=== PATIENT | male | born 1950 | race African-American/Black ===

== ENCOUNTER 2017-02-01 19:53 | Emergency (ER) | payer MEDICAID ==
[~2017-02-01] VITALS: Ht 172.7 cm; Wt 79.0 kg
[2017-02-01] MEDS ORDERED: KETOROLAC 30MG/ML VIAL IV STA (20:33)
[2017-02-01] MEDS ORDERED: ONDANSETRON HCL 4MG/2ML VIAL IV STA (20:33)
[2017-02-01] MEDS ORDERED: SODIUM CHLORIDE 0.9% 1,000 ML IV ONE (20:33)
[2017-02-01] MEDS ORDERED: FAMOTIDINE 20MG/2ML VIAL IV ONE (20:45)
[2017-02-01 20:59] LABS: BASOPHILS % 0.4 % (0.0-2.0); CHLORIDE 98 mEq/L (98-107); EOSINOPHILS % 0.1 % (0.0-5.0); HEMATOCRIT. 50.6 % (42.0-52.0); HEMOGLOBIN. 17.1 g/dL (14.0-18.0); LYMPHOCYTES % 13.4 % (20.0-50.0); MEAN CORPUSCULAR HEMOGLOBIN 30.3 pg (28.0-32.0); MEAN CORPUSCULAR VOLUME 89.9 fL (80.0-94.0); MEAN PLATELET VOLUME 8.3 fl (7.4-10.4); MONOCYTES % 7.7 % (2.0-8.0); NEUTROPHILS % 78.4 % (40.0-76.0); PLATELET 275 x1000/uL (130-400); RED BLOOD CELL COUNT 5.63 mill/uL (4.7-6.1); RED CELL DISTRIBUTION WIDTH 15.3 % (11.6-14.6)
[2017-02-01 21:01] LABS: CARBON DIOXIDE 32 mEq/L (21-32)
[2017-02-01 22:31] LABS: CLARITY URINE CLEAR (CLEAR); COLOR URINE YELLOW (YELLOW); GLUCOSE URINE 1+ (NEGATIVE); KETONES URINE 2+ (NEGATIVE); LEUKOCYTE ESTERASE URINE NEGATIVE (NEGATIVE); NITRITE URINE NEGATIVE (NEGATIVE); OCCULT BLOOD URINE TRACE (NEGATIVE); PROTEIN URINE 4+ (NEGATIVE); SPECIFIC GRAVITY URINE 1.025 (1.005-1.030)
[2017-02-01] MEDS ORDERED: IOHEXOL-300 100 ML BOTTLE ONE (22:33)
[2017-02-02 02:24] VITALS: BP 145/90
== END 2017-02-02 02:25 | disposition home or self-care (01) ==
LOC: ER 19:53
DX: R10.33 Periumbilical pain (principal); R11.2 Nausea with vomiting, unspecified; E11.9 Type 2 diabetes mellitus without complications; I10 Essential (primary) hypertension
CPT/HCPCS: 36415; 74177; 80053; 81001; 83690; 85025; 96374; 96375; 99285; J1885; J2405; J3490; J7040; Q9967; Z7610; J7030

== ENCOUNTER 2022-04-22 18:36 | Inpatient (IN) | payer MEDICARE, MEDICAID ==
[~2022-04-22] VITALS: Ht 182.9 cm; Wt 79.4 kg
[2022-04-22] MEDS ORDERED: ALBUTEROL (0.5%) 2.5MG/0.5ML NEB HHN ONE (19:15)
[2022-04-22 19:56] LABS: BASOPHILS % 0.7 % (0.0-2.0); EOSINOPHILS % 2.7 % (0.0-5.0); HEMATOCRIT. 31.6 % (42.0-52.0); HEMOGLOBIN. 10.7 g/dL (14.0-18.0); LYMPHOCYTES % 21.7 % (20.0-50.0); MEAN CORPUSCULAR HEMOGLOBIN 30.4 pg (28.0-32.0); MEAN CORPUSCULAR VOLUME 89.9 fL (80.0-94.0); MEAN PLATELET VOLUME 7.5 fl (7.4-10.4); MONOCYTES % 11.1 % (2.0-8.0); NEUTROPHILS % 63.8 % (40.0-76.0); PLATELET 272 x1000/uL (130-400); RED BLOOD CELL COUNT 3.52 mill/uL (4.7-6.1); RED CELL DISTRIBUTION WIDTH 15.9 % (11.6-14.6)
[2022-04-22 20:02] LABS: CHLORIDE 112 mEq/L (98-107)
[2022-04-22 20:17] LABS: ETHANOL BLOOD < 10 mg/dL
[2022-04-22 21:24] LABS: *AMPHETAMINES SCREEN URINE NEGATIVE (NEGATIVE); *BARBITURATES SCREEN URINE NEGATIVE (NEGATIVE); *BENZODIAZEPINES SCREEN URINE NEGATIVE (NEGATIVE); *COCAINE SCREEN URINE PRESUMTIVE POSITIVE (NEGATIVE); CANNABINOID URINE SCREEN NEGATIVE (NEGATIVE); METHADONE URINE SCREEN NEGATIVE (NEGATIVE); OPIATES URINE SCREEN NEGATIVE (NEGATIVE); PHENCYCLIDINE URINE SCREEN PRESUMTIVE POSITIVE (NEGATIVE)
[2022-04-22] MEDS ORDERED: FUROSEMIDE 40MG/4ML VIAL IVP NR (22:15)
[2022-04-23] MEDS: IPRATROPIUM BROMIDE (0.02%) 0.5MG/2.5ML NEB HHN SCH (00:33)
[2022-04-23] MEDS: ALBUTEROL (0.083%) 2.5MG/3ML NEB HHN SCH (00:33)
[2022-04-23] MEDS ORDERED: ONDANSETRON HCL 4MG/2ML INJ IV PRN (08:30)
[2022-04-23] MEDS ORDERED: ACETAMINOPHEN 325MG TABLET PO PRN (08:30)
[2022-04-23 12:00] VITALS: BP 147/68
[2022-04-23] MEDS ORDERED: IPRATROPIUM/ALBUTEROL 0.5-3(2.5)MG/3ML NEB HHN SCH (12:00)
[2022-04-23 12:20] VITALS: BP 147/68
[2022-04-23] MEDS ORDERED: GLIP5TAB12 PO (13:46)
[2022-04-23] MEDS ORDERED: METF-874 PO (13:46)
[2022-04-23] MEDS ORDERED: DEXTROSE 50% WATER 50ML SYRINGE IV PRN (14:15)
[2022-04-23 16:00] VITALS: BP 123/73
[2022-04-23] MEDS: BLOOD SUGAR DIAGNOSTIC STRIP TEST SCH ×2 (16:43→21:00)
[2022-04-23] MEDS: METHYLPREDNISOLONE SOD SUCC 40 MG/ML VIAL IV SCH (18:00)
[2022-04-23] MEDS: INSULIN LISPRO 100 UNITS/ML SUBCUT SCH ×2 (18:01→22:12)
[2022-04-23 20:00] VITALS: BP 133/70
[2022-04-24] VITALS: BP 120/66
[2022-04-24] MEDS: METHYLPREDNISOLONE SOD SUCC 40 MG/ML VIAL IV SCH ×2 (01:28→10:23)
[2022-04-24] MEDS: IPRATROPIUM BROMIDE (0.02%) 0.5MG/2.5ML NEB HHN SCH ×4 (03:51→15:00)
[2022-04-24] MEDS: ALBUTEROL (0.083%) 2.5MG/3ML NEB HHN SCH ×4 (03:51→15:00)
[2022-04-24 04:00] VITALS: BP 137/75
[2022-04-24] MEDS: BLOOD SUGAR DIAGNOSTIC STRIP TEST SCH ×2 (07:01→12:10)
[2022-04-24] MEDS: INSULIN LISPRO 100 UNITS/ML SUBCUT SCH ×2 (07:40→14:03)
[2022-04-24 08:00] VITALS: BP 126/75
[2022-04-24] MEDS: AMLODIPINE 10MG TABLET PO SCH ×2 (08:44→10:30)
[2022-04-24 12:00] VITALS: BP 137/67
[2022-04-24] MEDS ORDERED: GLIPIZIDE 5MG TABLET PO SCH (14:15)
[2022-04-24 15:28] VITALS: BP 126/67
[2022-04-24] MEDS ORDERED: ALBU18HF2 IH (19:02)
[2022-04-24] MEDS ORDERED: P20 MT (19:02)
[2022-04-24] MEDS ORDERED: FLUT1DIS3 INH (19:02)
[2022-04-24] MEDS ORDERED: GLIP5TAB12 MT (19:02)
[2022-04-25] MEDS ORDERED: GLIPIZIDE 5MG TABLET PO SCH (07:10)
== END 2022-04-24 16:05 | disposition home or self-care (01) | DRG 140 ==
LOC: ER 18:36 → 8WST 23:47
PROVIDERS: ADMIT Internal Medicine; ATTEND Emergency Medicine
DX: J44.1 Chronic obstructive pulmonary disease with (acute) exacerbation (principal); N17.0 Acute kidney failure with tubular necrosis; E44.0 Moderate protein-calorie malnutrition; D64.9 Anemia, unspecified; E11.9 Type 2 diabetes mellitus without complications; F17.210 Nicotine dependence, cigarettes, uncomplicated; F14.10 Cocaine abuse, uncomplicated; Z20.822 Contact with and (suspected) exposure to COVID-19; I10 Essential (primary) hypertension; I25.10 Atherosclerotic heart disease of native coronary artery without angina pectoris; F19.10 Other psychoactive substance abuse, uncomplicated; Z68.23 Body mass index [BMI] 23.0-23.9, adult
CPT/HCPCS: 36415; 71045; 80053; 80305; 80320; 82962; 83036; 83880; 84484; 85025; 87426; 87804; 93005; 94640; 99285; C9803; J1815; J1940; J2920; G0480